=== PATIENT | male | born 1990 | race Caucasian/White ===

== ENCOUNTER 2017-04-20 18:25 | Inpatient (IN) | payer BC, OTHER ==
[~2017-04-20] VITALS: Ht 167.6 cm; Wt 99.8 kg
--- NOTE | 2017-04-20 19:30 | NUR ---
PRE ADMISSION NOTE Pt is a 26 y/o male, seen at intake, AAOx4, no SOB with mild anxiety and flushed skin noted at this time. Pt is currently intoxicated. Discussed with patient the admission policies of the unit. Patient is coherent and able to respond to questions appropriately. No known allergies, denies history of seizures. Reports PMH of anxiety, depression, insomnia, and left ventricular hypertrophy (LVH). Pt is ambulatory with steady gait. Vital signs taken and as follows: BP: 144/85, P: 116, R: 18, O2: 99%, T: 98.6, PA: 0/10. Pt brought home medications. Pt verbalized understanding of instructions and teachings regarding disposal of narcotic and other controlled home medications, unit protocols such as taking of vital signs Q4H and handling and disposal of contraband. Will continue with admission upon pts arrival on the unit.
--- NOTE | 2017-04-20 19:43 | NUR ---
ADMISSION NOTE Pt is a 26 y/o male admitted on 04/14/17 for ETOH dependence, arrived on the unit at 1943. Pt able to provide UDS during intake. Skin and body check completed. Pt is full code, NKA, regular diet and on fall/seizure precautions. No reported seizure history. Reports PMH of anxiety, depression, insomnia and left ventricular hypertrophy (LVH). Pt refuses flu/pneumonia vaccine. Vitals upon assessment are BP: 144/85, P: 116, R: 18, O2: 99%, T: 98.6, PA: 0/10. Weight 220, height 56. Pt is currently intoxicated and reports his last intake was beer just prior to arrival. Pt reports he does not have a PCP, smokes approximately pack cigarettes daily, denies being hospitalized or in [facility] within past 30 days. Pt brought home medication Risperidone 1 mg taken once daily. Pt also verbalizes taking Zoloft and unknown sleep medication regularly. Pt is able to understand and respond to all questions pertaining to his hospitalization. Substance Abuse History is as follows: 1. Beer 6-15 cans daily, last intake of 12-15 cans total on day of admission (last intake just prior to arrival), at this rate for 1 year. 2. Whiskey 500-750 ml daily, last intake of 500 ml on day of admission, at this rate for 3 months. Pts longest sober period for 28 days in April 2016. Pt reports this is his first time in treatment/detox. Reports substance use history with his mother, father and brother. Father has PMH of heart disease and RI. Upon assessment, pt is AAOx4 and presents with anxiety, agitation, sweats, gross tremors and flushed skin. Pt reports it is typical for him to have tremors when intoxicated. Respirations even and unlabored. Denies SOB or chest pain. Bowel sounds active x 4, abdomen soft. PERRLA. Skin intact, no open wounds noted. Pt denies SI/HI at this time. Reports having history of suicidal thoughts with no plan. Educational information provided and left at bedside. Pt oriented to room and encouraged to notify staff with any concerns. Safety measures in place. Call light within reach, side rails up x 2, bed locked and in low position. Will continue to monitor. Addendum: 04/21/17 at 0538 by CHANDANA DIETZ RN PT ADMITTED ON 04/20/17
[2017-04-20] MEDS ORDERED: MAGNESIUM HYDROXIDE 30 ML LIQUID UDC PO PRN (19:45)
[2017-04-20] MEDS ORDERED: LORAZEPAM 1 MG TABLET PO PRN ×2 (19:45)
[2017-04-20] MEDS ORDERED: ONDANSETRON 4 MG/2 ML VIAL IM PRN (19:45)
[2017-04-20] MEDS ORDERED: diphenhydrAMINE 50 MG CAPSULE PO PRN (19:45)
[2017-04-20] MEDS ORDERED: DICYCLOMINE HCL 20 MG TABLET PO PRN (19:45)
[2017-04-20] MEDS ORDERED: NICOTINE POLACRILEX 4 MG GUM-PK OF TEN BC PRN (19:45)
[2017-04-20] MEDS ORDERED: MIRALAX 17 GM POWD.PACK PO PRN (19:45)
[2017-04-20] MEDS ORDERED: ONDANSETRON ODT 4 MG TAB.RAPDIS SL PRN (19:45)
[2017-04-20] MEDS ORDERED: IBUPROFEN 400 MG TABLET PO PRN (19:45)
[2017-04-20] MEDS ORDERED: NICOTINE 14 MG/24HR PATCH TD PRN (19:45)
[2017-04-20] MEDS ORDERED: MAG HYDROX/AL HYDROX/SIMETH 30 ML LIQUID UDC PO PRN (19:45)
[2017-04-20] MEDS ORDERED: ACETAMINOPHEN 325 MG TABLET PO PRN (19:45)
[2017-04-20] MEDS ORDERED: LOPERAMIDE HCL 2 MG CAPSULE PO PRN ×2 (19:45)
[2017-04-20] MEDS ORDERED: LORAZEPAM 2 MG/1 ML VIAL IM PRN (19:45)
[2017-04-20 20:00] VITALS: BP 144/85
[2017-04-20 20:13] LABS: *AMPHETAMINE, URINE NEGATIVE (NEGATIVE); *BARBITURATE, URINE NEGATIVE (NEGATIVE); *CANNABINOID, URINE NEGATIVE (NEGATIVE); *COCCAINE, URINE NEGATIVE (NEGATIVE); *OPIATE, URINE NEGATIVE (NEGATIVE); *PHENCYCLIDINE SCREEN,URINE NEGATIVE (NEGATIVE)
[2017-04-20] MEDS ORDERED: THIAMINE HCL 200 MG/2 ML VIAL IM ONE (21:00)
--- NOTE | 2017-04-20 21:56 | NUR ---
PRN CLONIDINE ADMINISTRATION Pt BP 144/85 and HR 116, orders to give Clonidine 0.1 mg PO. Safety measures in place. Call light within reach. Will continue to monitor.
[2017-04-20] MEDS: CLONIDINE HCL 0.1 MG TABLET PO PRN (21:58)
[2017-04-20 22:33] LABS: BASOPHILS # (AUTO) 0.1 K/uL (0.0-8.0); BASOPHILS % (AUTO) 0.7 % (0.0-2.0); EOSINOPHILS % (AUTO) 0.3 % (0.0-7.0); HEMATOCRIT 43.8 % (36.7-47.1); HEMOGLOBIN 15.1 g/dL (12.5-16.3); LYMPHOCYTES # (AUTO) 1.4 K/uL (20.0-40.0); LYMPHOCYTES % (AUTO) 17.9 % (20.5-51.5); MEAN CORPUSCULAR HEMOGLOBIN 31.1 uug (23.8-33.4); MEAN CORPUSCULAR HGB CONC 34 g/dL (32.5-36.3); MEAN CORPUSCULAR VOLUME 90.4 fL (73.0-96.2); MONOCYTES # (AUTO) 1.1 K/uL (2.0-10.0); MONOCYTES % (AUTO) 14.1 % (0.0-11.0); NEUTROPHILS # (AUTO) 5.2 K/uL (1.8-8.9); PLATELET COUNT (AUTO) 168 K/uL (152-348); RED BLOOD CELL COUNT(AUTO) 4.84 MIL/uL (4.06-5.63); WHITE BLOOD COUNT (AUTO) 7.8 K/uL (3.6-10.2)
[2017-04-20 22:49] LABS: ETHANOL < 3 MG/DL (0-0)
[2017-04-20 22:50] LABS: ALANINE AMINOTRANSFERASE 52 U/L (16-63); ALKALINE PHOSPHATASE 71 U/L (50-136); ASPARTATE AMINOTRANSFERASE 60 U/L (15-37); BILIRUBIN,TOTAL 0.5 mg/dL (0.2-1.0); CARBON DIOXIDE 22 mmol/L (21-32); CHLORIDE 99 mmol/L (98-107); CREATININE 0.9 mg/dL (0.6-1.3); GLUCOSE 104 mg/dL (74-106); LIPASE 284 U/L (73-393); MAGNESIUM 1.7 mg/dL (1.8-2.4); POTASSIUM 3.2 mmol/L (3.5-5.1); UREA NITROGEN, BLOOD 11 mg/dL (7-18)
--- NOTE | 2017-04-20 22:56 | NUR ---
PRN CLONIDINE REASSESSMENT BP 138/82 HR 108, Clonidine effective in reducing BP. Safety measures in place. Call light within reach. Will continue to monitor.
[2017-04-20 22:58] VITALS: BP 138/82
--- NOTE | 2017-04-20 23:26 | NUR ---
PRN VISTARIL AND BENADRYL ADMINISTRATION Pt presents with anxiety and restlessness, requests sleep aid. Safety measures in place. Call light within reach. Will continue to monitor.
[2017-04-20] MEDS ORDERED: HYDROXYZINE PAMOATE 25 MG CAPSULE PO PRN (23:30)
[2017-04-20] MEDS ORDERED: HYDROXYZINE PAMOATE 25 MG CAPSULE ONE (23:41)
[2017-04-21] VITALS (7 sets, daily range): BP systolic 125–152; BP diastolic 79–98
--- NOTE | 2017-04-21 | NUR ---
CIWA DEFERRED Pt is laying in bed with eyes closed, CIWA deferred, to be assessed when pt is awake per orders. Respirations 18, even and unlabored. Safety measures in place. Call light within reach. Will continue to monitor.
--- NOTE | 2017-04-21 00:26 | NUR ---
PRN VISTARIL AND BENADRYL REASSESSMENT Pt is laying in bed with eyes closed, respirations 18, even and unlabored. Safety measures in place. Call light within reach. Will continue to monitor.
[2017-04-21] MEDS ORDERED: RISP1TAB27 PO (00:32)
--- NOTE | 2017-04-21 04:00 | NUR ---
CIWA DEFERRED Pt is laying in bed with eyes closed, CIWA deferred, to be assessed when pt is awake per orders. Respirations 14, even and unlabored. Safety measures in place. Call light within reach. Will continue to monitor.
--- NOTE | 2017-04-21 07:14 | NUR ---
END OF SHIFT Pt is a 26 y/o male admitted on 04/14/17 for ETOH dependence. Pt was dependent on 6-15 cans of beer and 500-750 ml of whiskey daily. Pt is full code, NKA, regular diet and on fall/seizure precautions. No reported seizure history. Reports PMH of anxiety, depression, insomnia and left ventricular hypertrophy (LVH). Pt is going to start a 5 day Ativan taper today. Upon admission, pt was intoxicated and presented with flushed skin, gross tremors, sweats, diarrhea, anxiety and agitation. Pt reports his tremors are a typical symptom when he is intoxicated. Scheduled vitamin B1 injection and PRN Vistaril, Clonidine and Benadryl administered, effective in meeting pts needs. Last CIWA 6. Pt slept 6 hours. Intake 1096 ml, void x 2, stool x 2. Safety measures in place. Call l ight within reach. Endorsed to day shift nurse.
--- NOTE | 2017-04-21 08:13 | NUR ---
Nursing notes: received pt in room sitting on bed, awake, alert, oriented x4, verbally responsive, slightly anxious, denies any discomfort at this time, pt is ambulatory and gave him a orientation of the unit since he just arrived last night.
[2017-04-21] MEDS: THIAMINE HCL 100 MG TABLET PO SCH (08:55)
[2017-04-21] MEDS: LORAZEPAM 1 MG TABLET PO SCH ×4 (08:55→20:48)
[2017-04-21] MEDS: MULTIVITAMINS,THERAPEUTIC TABLET PO SCH (08:55)
[2017-04-21] MEDS: FOLIC ACID 1 MG TABLET PO SCH (08:55)
[2017-04-21] MEDS ORDERED: TUBERCULIN,PURIF.PROT.DERIV. 5 TU/0.1 ML TEST ID ONE (09:00)
[2017-04-21] MEDS ORDERED: POTASSIUM CHLORIDE 10 MEQ CAPSULE.SA PO ONE (10:30)
[2017-04-21] MEDS ORDERED: MAGNESIUM OXIDE 400 MG TABLET PO ONE (10:30)
--- NOTE | 2017-04-21 11:53 | NUR ---
Pt's labs shows K+3.2 and MG 1.7 md ordered to replaced and orders were carried out, pt took his meds, pt at this time in room in bed , complient with meds, no c/o N/V or any discomfort, remains isolative in room, no s/s of distress at this time will continue monitoring s/s.
--- NOTE | 2017-04-21 18:00 | NUR ---
pt out the room, continue with 5 days of ativan taper, flat affect, alert, oriented x4 ambulatory, cows 4 and ciwa 6, no distress at this time. Addendum: 04/21/17 at 1846 by VAUGHN WALTON RN cows 0 and ciwa 7
--- NOTE | 2017-04-21 19:30 | NUR ---
START OF SHIFT Pt is a 26 y/o male admitted on 04/14/17 for ETOH dependence. Pt was dependent on 6-15 cans of beer and 500-750 ml of whiskey daily. Pt is full code, NKA, regular diet and on fall/seizure precautions. No reported seizure history. Reports PMH of anxiety, depression, insomnia and left ventricular hypertrophy (LVH). Pt started a 5 day Ativan taper this morning, tolerating well. Last CIWA 7 and no PRNs administered during day shift. Upon assessment, pt A&Ox4 and presents with flushed skin, tremors, mild sweats, agitation, anxiety, diarrhea and dysphoria. Medications due. Respirations even and unlabored. Denies chest pain or SOB. Denies N/V. Denies SI/HI. Safety measures in place. Call light within reach. Will continue to monitor.
[2017-04-21] MEDS: CLONIDINE HCL 0.1 MG TABLET PO PRN (20:48)
--- NOTE | 2017-04-21 20:48 | NUR ---
PRN CLONIDINE AND IMODIUM ADMINISTRATION BP 150/87 HR 116, orders to give Clonidine 0.1 mg for BP > 140/90. Pt reports having frequent watery stools. Encouraged increased fluid intake. Safety measures in [facility]. Call light within reach. Will continue to monitor.
--- NOTE | 2017-04-21 21:48 | NUR ---
PRN CLONIDINE AND IMODIUM REASSESSMENT BP 138/88 HR 118, Clonidine 0.1 mg effective in reducing BP from 150/87. Pt reports he has not had another BM yet, will continue to monitor for effectiveness of Imodium. Safety measures in place. Call light within reach.
[2017-04-21] MEDS: TRAZODONE 50 MG TABLET PO PRN (22:21)
--- NOTE | 2017-04-21 22:28 | NUR ---
PRN TRAZODONE AND NICOTINE PATCH ADMINISTRATION Pt requests sleep aid and smoking cessation aid. Safety measures in place. Call light within reach. Will continue to monitor.
--- NOTE | 2017-04-21 23:28 | NUR ---
PRN TRAZODONE REASSESSMENT Pt laying in bed with eyes closed, respirations 16 even and unlabored. Safety measures in place. Call light within reach.
[2017-04-22] VITALS: BP 134/84
--- NOTE | 2017-04-22 | NUR ---
CIWA DEFERRED Pt is laying in bed with eyes closed snoring, CIWA deferred, to be assessed when pt is awake per orders. Respirations 16, even and unlabored. Safety measures in place. Call light within reach. Will continue to monitor.
--- NOTE | 2017-04-22 04:00 | NUR ---
CIWA DEFERRED AND VITALS REFUSED Pt laying in bed with eyes closed, CIWA deferred, to be assessed when pt is awake per orders. Vitals refused. Respirations 18, even and unlabored. Safety measures in place. Call light within reach. Will continue to monitor.
[2017-04-22 07:08] LABS: HEPATITIS B SURFACE AG Negative (Negative)
--- NOTE | 2017-04-22 07:27 | NUR ---
END OF SHIFT Pt is a 26 y/o male admitted on 04/14/17 for ETOH dependence. Pt was dependent on 6-15 cans of beer and 500-750 ml of whiskey daily. Pt is full code, NKA, regular diet and on fall/seizure precautions. No reported seizure history. Reports PMH of anxiety, depression, insomnia and left ventricular hypertrophy (LVH). Pt started a 5 day Ativan taper on 04/21/17, tolerating well. Pt presented with flushed skin, tremors, mild sweats, agitation, anxiety, increased HR and BP, diarrhea and dysphoria. Scheduled medications and PRN Trazodone, Imodium, Clonidine and Nicotine patch administered, effective in managing S/S of withdrawal as verbalized by pt. Last CIWA 8 at 1999. Pt slept 6 hours. Intake 1090 ml, void x 4, stool x 1. Safety measures in place. Call light within reach. Pts needs have been met. Endorsed to day shift nurse.
--- NOTE | 2017-04-22 07:58 | NUR ---
START OF SHIFT RECEIVED PT A/O X4, RESPIRATIONS EVEN AND UNLABORED. PT REPORTS HAVING ANXIETY, MILD BODY DISCOMFORT, AND SLIGHT TREMORS WERE FELT THIS MORNING. PT DENIES NAUSEA, SOB, AND CHEST PAIN. ENCOURAGED PT TO CONSUME MORE FLUIDS TO FACILITATE IN THE DETOX PROCESS. SIDE RAILS UP X2 AND PADDED, BED IS IN LOWEST POSITION. CALL LIGHT WITHIN REACH. SZ AND FALL PRECAUTIONS TAKEN. WILL CONTINUE TO MONITOR AND PROVIDE SUPPORT.
[2017-04-22 08:00] VITALS: BP 134/63
[2017-04-22] MEDS: MULTIVITAMINS,THERAPEUTIC TABLET PO SCH (08:57)
[2017-04-22] MEDS: LORAZEPAM 1 MG TABLET PO SCH ×3 (08:57→20:45)
[2017-04-22] MEDS: FOLIC ACID 1 MG TABLET PO SCH (08:57)
[2017-04-22] MEDS: THIAMINE HCL 100 MG TABLET PO SCH (08:57)
[2017-04-22 12:00] VITALS: BP 158/95
--- NOTE | 2017-04-22 15:13 | NUR ---
Therapist prompted client to group today. CLient attended group.
[2017-04-22 16:00] VITALS: BP 165/88
[2017-04-22] MEDS: CLONIDINE HCL 0.1 MG TABLET PO PRN (17:32)
--- NOTE | 2017-04-22 17:32 | NUR ---
PRN PT BP 165/88, HR 113. CLONIDINE 0.1 MG PO PRN GIVEN AT 1732. ALL SAFETY PRECAUTIONS TAKEN. WILL CONTINUE TO MONITOR AND PROVIDE SUPPORT.
--- NOTE | 2017-04-22 18:35 | NUR ---
REASSESSMENT PT BP: 142/74, HR: 88 UPON REASSESSMENT. WILL CONTINUE TO MONITOR AND PROVIDE SUPPORT.
--- NOTE | 2017-04-22 19:16 | NUR ---
END OF SHIFT PT HAS A FLAT AFFECT AND IS A/O X4, RESPIRATIONS EVEN AND UNLABORED. PT REPORTS HAVING MILD ANXIETY AND SLIGHT TREMORS ARE FELT. PT DENIES NAUSEA, SOB, AND CHEST PAIN. LAST CIWA 6. ENCOURAGED PT TO CONSUME MORE FLUIDS TO FACILITATE IN THE DETOX PROCESS. PT VERBALIZED HE IS READY TO LEAVE DETOX AND GET BACK TO HIS NORMAL LIFE WITHOUT FURTHER TREATMENT. ENCOURAGED PT TO STAY AND COMPLETE TREATMENT. PT VERBALIZED UNDERSTANDING. SIDE RAILS UP X2 AND PADDED, BED IS IN LOWEST POSITION. CALL LIGHT WITHIN REACH. SZ AND FALL PRECAUTIONS TAKEN. WILL GIVE ALL ENDORSEMENT AND PERTINENT DATA TO [employer] NURSE.
[2017-04-22 20:00] VITALS: BP 160/90
--- NOTE | 2017-04-22 20:00 | NUR ---
Start of Shift Pt is a 26 year old male admitted for ETOH dependence, placed on 5 day Ativan taper. Pt reported on consuming beer 6-15 cans/daily and whiskey 500-750ml/daily. PMH: anxiety, depression and insomnia. NKA, regular diet, fall/seizure precautions and full code. Upon assessment, pt presents with anxiety, chills, skin clammy/flushed with feeling of hot/cold, tremors are visible, pins/needles sensations, respirations unlabored, denies SOB/chest pain, medications due. Safety measures in place, call light within reach, side rails up x2, bed locked and in low position. Will continue to monitor.
[2017-04-22] MEDS: GABAPENTIN 300 MG CAPSULE PO SCH (20:44)
[2017-04-22] MEDS: hydrALAZINE HCL 50 MG TABLET PO PRN (20:45)
--- NOTE | 2017-04-22 20:45 | NUR ---
PRN Administration BP 160/90, pulse 118. Hydralazine 50mg PRN administered. Safety measures in place, will continue to monitor.
[2017-04-22 21:45] VITALS: BP 146/89
--- NOTE | 2017-04-22 21:55 | NUR ---
PRN Reassessment BP 146/89, pulse 115. Pt is resting in room, watching TV. Needs met, safety measures in place, will continue to monitor.
[2017-04-22] MEDS: TRAZODONE 50 MG TABLET PO PRN (23:42)
[2017-04-23] VITALS: BP 144/87
--- NOTE | 2017-04-23 | NUR ---
PRN Administration/Reassessment of BP BP 144/87, pulse 108, resp 17, SpO2 98% room air, temp 98.2 Pt requests sleep aid. Trazodone 50mg PRN administered. Safety measures in place, will continue to monitor.
--- NOTE | 2017-04-23 01:00 | NUR ---
PRN Reassessment Upon reassessment, pt is sleeping, respirations even/unlabored. Safety measures in place, will continue to monitor.
--- NOTE | 2017-04-23 04:00 | NUR ---
SULMAWA deferred d/t pt sleeping, to assess while pt is awake as ordered. Pt refused to be woken up for 0400 [address] measures [address], will continue to monitor.
--- NOTE | 2017-04-23 07:00 | NUR ---
End of Shift Pt is a 26 year old male admitted for ETOH dependence, placed on 5 day Ativan taper. Pt reported on consuming beer 6-15 cans/daily and whiskey 500-750ml/daily. PMH: anxiety, depression and insomnia. NKA, regular diet, fall/seizure precautions and full code. During shift, pt presented with anxiety, chills, skin clammy/flushed with feeling of hot/cold, tremors are visible, pins/needles sensations scheduled taper medications administered, CIWA 6. Hydralazine 50mg PRN administered for elevated VS. Latest VS are BP 144/87, pulse 108, resp 17, SpO2 98, temp 98.1. Pt slept for 5 hours, intake [id number] ml PO, voids x2 and stool x1. Safety measures in place, call light within reach, side rails up x2, bed locked and in low position. Endorsed to day shift nurse.
--- NOTE | 2017-04-23 07:36 | NUR ---
START OF SHIFT RECEIVED PT A/O X4, LAYING IN BED, RESPIRATIONS EVEN AND UNLABORED. PT REPORTS ANXIETY, INTERMITTENT CHILLS. DENIES SOB, CHEST PAIN OR NAUSEA. PT LOOKS FLUSHED AND TREMORS ARE SEEN. ENCOURAGED PT TO CONSUME MORE FLUIDS TO FACILITATE IN DETOX PROCESS. SIDE RAILS UP X2, BED IS LOCKED IN LOWEST POSITION. CALL LIGHT WITHIN REACH. SZ AND FALL PRECAUTIONS TAKEN. WILL CONTINUE TO MONITOR AND PROVIDE SUPPORT.
[2017-04-23 08:00] VITALS: BP 114/68
[2017-04-23] MEDS: THIAMINE HCL 100 MG TABLET PO SCH (08:57)
[2017-04-23] MEDS: GABAPENTIN 300 MG CAPSULE PO SCH ×2 (08:57→20:21)
[2017-04-23] MEDS: MULTIVITAMINS,THERAPEUTIC TABLET PO SCH (08:57)
[2017-04-23] MEDS: LORAZEPAM 1 MG TABLET PO SCH ×3 (08:57→16:46)
[2017-04-23] MEDS: FOLIC ACID 1 MG TABLET PO SCH (08:57)
--- NOTE | 2017-04-23 11:25 | NUR ---
PRN PT C/O HAVING NICOTINE CRAVINGS. NICORETTE GUM WAS GIVEN AT 1125. WILL CONTINUE TO MONITOR.
--- NOTE | 2017-04-23 11:25 | NUR ---
PRN PT C/O OF HAVING NICOTINE CRAVINGS AND REQUESTED A NICORETTE GUM. ADMINISTERED AT 1125. WILL CONTINUE TO MONITOR.
[2017-04-23 12:00] VITALS: BP 169/93
--- NOTE | 2017-04-23 12:25 | NUR ---
REASSESSMENT PT STATED THAT THE NICORETTE GUM WAS EFFECTIVE FOR HIS NICOTINE CRAVINGS. WILL CONTINUE TO MONITOR.
[2017-04-23] MEDS: hydrALAZINE HCL 50 MG TABLET PO PRN (13:23)
--- NOTE | 2017-04-23 13:25 | NUR ---
PRN PT BP WAS 169/ 93, HR 119. HYDRALAZINE 50 MG PO PRN WAS GIVEN. WILL CONTINUE TO MONITOR.
[2017-04-23] MEDS: CLONIDINE HCL 0.1 MG TABLET PO PRN (15:24)
--- NOTE | 2017-04-23 15:25 | NUR ---
PRN PT C/O HE WAS HAVING HIGH ANXIETY AND STATED, "I AM HAVING REALLY HIGH ANXIETY RIGHT NOW, I AM FREAKING OUT." BP WAS 165/103, HR WAS 123. SWEATING WAS VISIBLE, HAD FACIAL FLUSHING, AND HAD LABORED BREATHING. CLONIDINE 0.1 MG PO PRN GIVEN FOR BP 165/103, HR 123. DR. BONNER NOTIFIED.
[2017-04-23 16:00] VITALS: BP 179/92
[2017-04-23] MEDS ORDERED: OLANZAPINE 10 MG VIAL IM ONE (16:00)
--- NOTE | 2017-04-23 16:40 | NUR ---
DR. BONNER ORDERED ZYPREXA 5 MG IM X1 DOSE FOR PANIC-LIKE SYMPTOMS. PT VERBALIZED HE WAS HAVING A PANIC ATTACK AND STATED, "I AM HAVING HIGH ANXIETY RIGHT NOW. I FEEL LIKE I AM FREAKING OUT." PT APPEARS TO BE HIGHLY ANXIOUS, WITH FACIAL FLUSHING, BEADS OF SWEAT ON HIS FACE, AND BREATHING ACCELERATED. CIWA 18. ZYPREXA 5 MG IM GIVEN. WILL CONTINUE TO MONITOR.
--- NOTE | 2017-04-23 17:40 | NUR ---
REASSESSMENT PT STATES HE IS FEELING BETTER AND MEDICATION WAS EFFECTIVE. WILL CONTINUE TO MONITOR.
--- NOTE | 2017-04-23 19:11 | NUR ---
END OF SHIFT PT IS A/O X4, LAYING IN BED, RESPIRATIONS EVEN AND UNLABORED. PT REPORTS ANXIETY, INTERMITTENT CHILLS. DENIES SOB, CHEST PAIN OR NAUSEA. PT LOOKS FLUSHED AND TREMORS ARE SEEN. PT HAD INCREASED ANXIETY AND STATE OF PANIC AROUND 1530; PT STATED, I AM HAVING HIGH ANXIETY RIGHT NOW. I FEEL LIKE I AM FREAKING OUT." DR BONNER WAS NOTIFIED AND ZYPREXA 5 MG IM X1 WAS ORDERD AND GIVEN. PT STATED IT WAS EFFECTIVE. ENCOURAGED PT TO CONSUME MORE FLUIDS TO FACILITATE IN DETOX PROCESS. SIDE RAILS UP X2, BED IS LOCKED IN LOWEST POSITION. CALL LIGHT WITHIN REACH. SZ AND FALL PRECAUTIONS TAKEN. WILL GIVE ALL ENDORSEMENT AND PERTINENT INFORMATION TO [employer] NURSE.
[2017-04-23 20:00] VITALS: BP 120/65
--- NOTE | 2017-04-23 20:00 | NUR ---
Start of Shift Pt is a 26 year old male admitted for ETOH dependence, placed on 5 day Ativan taper. Pt reported on consuming beer 6-15 cans/daily and whiskey 500-750ml/daily. PMH: anxiety, depression and insomnia. NKA, regular diet, fall/seizure precautions and full code. Upon assessment, pt presents with anxiety, reports feeling fatigue, skin clammy/flushed, tremors are visible, pins/needles sensations, respirations unlabored, denies SOB/chest pain, medications due. Safety measures in place, call light within reach, side rails up x2, bed locked and in low position. Will continue to monitor.
[2017-04-23] MEDS ORDERED: LORAZEPAM 1 MG TABLET PO SCH (21:00)
[2017-04-24] VITALS: BP 145/79
[2017-04-24] MEDS: TRAZODONE 50 MG TABLET PO PRN ×2 (00:10→22:40)
--- NOTE | 2017-04-24 00:10 | NUR ---
PRN Reassessment Pt reports difficulty falling asleep. Trazodone 50mg PRN administered. Safety measures in place, will continue to monitor. Addendum: 04/24/17 at 0209 by CAMILO CURTIS RN CORRECTION: PRN ADMINISTRATION
--- NOTE | 2017-04-24 00:11 | NUR ---
PRN Administration Pt reports difficulty falling asleep. Trazodone 50mg PRN administered. Safety measures in place, will continue to monito
--- NOTE | 2017-04-24 01:12 | NUR ---
Upon reassessment, pt is sleeping, respirations even/unlabored. Safety measures in place, will continue to monitor.
--- NOTE | 2017-04-24 07:00 | NUR ---
End of Shift Pt is a 26 year old male admitted for ETOH dependence, placed on 5 day Ativan taper. Pt reported on consuming beer 6-15 cans/daily and whiskey 500-750ml/daily. PMH: anxiety, depression and insomnia. NKA, regular diet, fall/seizure precautions and full code. During shift, pt presented with anxiety, reported feeling fatigue, skin clammy/flushed, tremors visible, pins/needles sensations scheduled taper medications administered, effective in management of s/s of withdrawal, CIWA 6. No PRN medications administered during shift. Pt slept for 6 hours, intake of 1328 ml PO, voids x2 and stool x0. Safety measures in place, call light within reach, side rails up x2, bed locked and in low position. Endorsed to day shift nurse.
--- NOTE | 2017-04-24 07:30 | NUR ---
START OF SHIFT Pt 26 y/o male admitted for eoth dependence. Pt received in room on bed with eyes closed resting, but easily arousable to name. Pt alert and oriented to name, place, and time. Perrla. Skin warm and slightly moist to touch. Respirations even and unlabored. Bilateral hand tremors noted. It was reported that pt slept for 6 hours last night. Bed on lowest position with side rails x2 up for safety. Call light within reach. No distress noted at this time.
[2017-04-24 08:00] VITALS: BP 96/53
[2017-04-24] MEDS: GABAPENTIN 300 MG CAPSULE PO SCH ×3 (08:53→20:07)
[2017-04-24] MEDS: THIAMINE HCL 100 MG TABLET PO SCH (08:53)
[2017-04-24] MEDS: FOLIC ACID 1 MG TABLET PO SCH (08:53)
[2017-04-24] MEDS: MULTIVITAMINS,THERAPEUTIC TABLET PO SCH (08:53)
[2017-04-24] MEDS: LORAZEPAM 1 MG TABLET PO SCH ×3 (08:53→20:08)
[2017-04-24] MEDS: VENLAFAXINE XR 75 MG CAP.SR.24H PO SCH (10:47)
[2017-04-24 12:35] VITALS: BP 156/81
[2017-04-24] MEDS: CLONIDINE HCL 0.1 MG TABLET PO PRN (12:41)
--- NOTE | 2017-04-24 12:41 | NUR ---
PRN pt with xz=377/88. Catapres po prn per MD order given and tolerated well.
--- NOTE | 2017-04-24 13:41 | NUR ---
PRN EVAL Pt with ea=052/88
[2017-04-24 16:00] VITALS: BP 133/98
--- NOTE | 2017-04-24 18:45 | NUR ---
END OF SHIFT Pt 26 y/o male admitted for ETOH dependence. Pt alert and oriented to name, place, and time. Perrla. Respirations even and unlabored. Skin warm and slightly moist to touch. Bilateral hand tremors noted. Pt states had periods of some anxiety this morning. Pt observed mostly in room this morning. Pt attended group activity. Pt was seen by MD today. Pt medication compliant and tolerated well. No ASE noted. Bed on lowest position with side rails x2 up for safety. Call light within reach. No distress noted at this time.
[2017-04-24 20:00] VITALS: BP 152/85
--- NOTE | 2017-04-24 20:00 | NUR ---
Start of Shift Pt is a 26 year old male admitted for ETOH dependence, placed on 5 day Ativan taper. Pt reported on consuming beer 6-15 cans/daily and whiskey 500-750ml/daily. PMH: anxiety, depression and insomnia. NKA, regular diet, fall/seizure precautions and full code. Upon assessment, pt presents with anxiety, reports feeling fatigue, skin clammy/flushed, tremors felt upon touch, respirations unlabored, denies SOB/chest pain, medications due. Safety measures in place, call light within reach, side rails up x2, bed locked and in low position. Will continue to monitor.
[2017-04-24] MEDS: CLONIDINE HCL 0.1 MG TABLET PO SCH (20:08)
[2017-04-24 21:10] VITALS: BP 142/86
--- NOTE | 2017-04-24 22:40 | NUR ---
PRN Administration Pt requests sleeping aid. Trazodone 50mg PRN administered. Safety measures in place, will continue to monitor.
--- NOTE | 2017-04-24 23:40 | NUR ---
PRN Reassessment Upon reassessment, pt is sleeping, respirations even/unlabored. Safety measures in place, will continue to monitor.
[2017-04-25] VITALS: BP 144/84
--- NOTE | 2017-04-25 | NUR ---
SULMAWA deferred d/t pt sleeping, to assess while pt is awake as ordered. BP 144/84, pulse 86, resp 16, SpO2 99% room air, temp 98.[address], Will continue to monitor.
--- NOTE | 2017-04-25 07:00 | NUR ---
End of Shift Pt is a 26 year old male admitted for ETOH dependence, placed on 5 day Ativan taper. Pt reported on consuming beer 6-15 cans/daily and whiskey 500-750ml/daily. PMH: anxiety, depression and insomnia. NKA, regular diet, fall/seizure precautions and full code. During shift, pt presented with anxiety, reported feeling fatigue, skin clammy/flushed, tremors felt upon touch scheduled taper medications administered, effective in management of s/s of withdrawal, CIWA 5. Trazodone 50mg PRN administered during shift. Pt slept for 6 hours, intake of 1341 ml PO, voids x4 and stool x0. Safety measures in place, call light within reach, side rails up x2, bed locked and in low position. Endorsed to day shift nurse.
--- NOTE | 2017-04-25 07:21 | NUR ---
START OF SHIFT Pt 26 y/o male admitted for eoth dependence. Pt received in room on bed with eyes closed resting, but easily arousable to name. Pt alert and oriented to name, place, and time. Perrla. Skin warm and slightly moist to touch. Respirations even and unlabored. Bilateral hand tremors noted slightly. It was reported that pt slept for 6 hours last night. Bed on lowest position with side rails x2 up for safety. Call light within reach. No distress noted at this time.
[2017-04-25] MEDS: FOLIC ACID 1 MG TABLET PO SCH (08:16)
[2017-04-25] MEDS: THIAMINE HCL 100 MG TABLET PO SCH (08:16)
[2017-04-25] MEDS: GABAPENTIN 300 MG CAPSULE PO SCH ×3 (08:16→21:51)
[2017-04-25] MEDS: CLONIDINE HCL 0.1 MG TABLET PO SCH ×2 (08:17→21:52)
[2017-04-25] MEDS: MULTIVITAMINS,THERAPEUTIC TABLET PO SCH (08:17)
[2017-04-25] MEDS: VENLAFAXINE XR 75 MG CAP.SR.24H PO SCH (08:17)
[2017-04-25 08:19] VITALS: BP 114/62
[2017-04-25] MEDS ORDERED: LORAZEPAM 1 MG TABLET PO SCH (09:00)
[2017-04-25 12:17] VITALS: BP 127/72
[2017-04-25] MEDS ORDERED: TRAZ-144 PO (15:06)
[2017-04-25] MEDS ORDERED: CLON0.1T14 PO (15:06)
[2017-04-25] MEDS ORDERED: HYDR25CA PO (15:06)
[2017-04-25] MEDS ORDERED: GABA-534 PO (15:06)
[2017-04-25] MEDS ORDERED: VENL75CA56 PO (15:06)
--- NOTE | 2017-04-25 16:59 | NUR ---
ENDORSEMENT Endorsed pt to nurse. All information given. No distress noted at this time.
[2017-04-25] MEDS: CLONIDINE HCL 0.1 MG TABLET PO PRN (17:04)
--- NOTE | 2017-04-25 17:04 | NUR ---
PRN Pt with cb=725/88. catapres po prn per MD order given and tolerated well.
[2017-04-25 17:05] VITALS: BP 143/88
--- NOTE | 2017-04-25 17:05 | NUR ---
RECEIVED CARE All pertinent information discussed, received care from primary nurse.
--- NOTE | 2017-04-25 18:03 | NUR ---
CLONIDINE REASSESSMENT Blood pressure noted 132/69, PRN Clonidine was effective.
--- NOTE | 2017-04-25 19:02 | NUR ---
END OF SHIFT Pt 26 year old male admitted for ETOH dependence. Pt alert and oriented to name, place, and time. Perrla. Respirations even and unlabored. Skin warm and slightly moist to touch. Bilateral hand tremors noted slightly. Pt observed mostly in room this morning. Pt attended group activity. Pt was seen by MD today. Pt medication compliant and tolerated well. Last CIWA score was 3, patient scheduled for discharge in AM. No ASE noted. Bed on lowest position with side rails x2 up for safety. Call light within reach. No distress noted at this time.
--- NOTE | 2017-04-25 19:15 | NUR ---
START OF SHIFT Received 26 year old male admitted on 04/20/17 for ETOH dependency. Pt is full code with NKA. He reports a PMHx of anxiety, depression and insomnia. He reports drinking beer 6-15 cans daily for 1 year. Last dose was 12-15 cans on 04/20/17. And Whiskey 500-750mL daily for 3 months. Last dose was 500 mL on 04/20/17. He denies any seizure history. He completed his 5 day Ativan taper and is scheduled to be DC to [facility]. Per endorsement, he received PRN Clonidine. Pt is alert and oriented x4, breathing is even and unlabored. Safety measures in place. Will monitor.
[2017-04-25 20:00] VITALS: BP 137/99
[2017-04-25] MEDS: TRAZODONE 50 MG TABLET PO PRN (23:16)
--- NOTE | 2017-04-25 23:16 | NUR ---
PRN TRAZODONE Pt complains of inability to sleep. PRN Trazodone administered as ordered. Will continue to monitor effectiveness.
[2017-04-26] VITALS: BP 148/89
--- NOTE | 2017-04-26 00:16 | NUR ---
PRN TRAZODONE REASSESSMENT PRN medication ineffective. Pt still awake but appears drowsy and reports he is ready to sleep. Safety measures in place. Will monitor.
--- NOTE | 2017-04-26 04:00 | NUR ---
CIWA DEFERRED Pt is lying in bed with eyes closed noted to be asleep. Respirations 16, breathing is even and unlabored. Safety measures in place. Will monitor.
--- NOTE | 2017-04-26 07:06 | NUR ---
END OF SHIFT Pt is a 26 year old male admitted on 04/20/17 for ETOH dependency. Pt is full code with NKA. He reports a PMHx of anxiety, depression and insomnia. He is scheduled to be DC today to [facility]. At 2316 he received PRN Trazodone. He slept a total of 5 hrs, Intake: 1182mL, Void: x3, BM:0, CIWA: 2. Pt remains alert and oriented x4, breathing is even and unlabored. Safety measures in place. Endorsed to AM shift.
--- NOTE | 2017-04-26 07:34 | NUR ---
Start of shift note; Received report from night nurse. Patient is a 26 year old male admitted on 04/20/17 for ETOH dependence. Patient was placed on a 5 day Ativan taper, no adverse reactions noted. Patient reported history of anxiety, depression and insomnia. Patient is on full code status, NKA, on a regular diet. Patient is medically cleared for discharge today. Will continue to monitor patient.
[2017-04-26] MEDS: VENLAFAXINE XR 75 MG CAP.SR.24H PO SCH (08:06)
[2017-04-26] MEDS: THIAMINE HCL 100 MG TABLET PO SCH (08:07)
[2017-04-26] MEDS: MULTIVITAMINS,THERAPEUTIC TABLET PO SCH (08:07)
[2017-04-26] MEDS: FOLIC ACID 1 MG TABLET PO SCH (08:07)
[2017-04-26] MEDS: GABAPENTIN 300 MG CAPSULE PO SCH (08:07)
[2017-04-26] MEDS: CLONIDINE HCL 0.1 MG TABLET PO SCH (08:07)
[2017-04-26 09:00] VITALS: BP 138/82
--- NOTE | 2017-04-26 09:48 | NUR ---
Discharge note; Patient is AOX4. Patient completed detox treatment without any adverse reactions. Patient's vital signs are within normal limits. Patient denies any suicidal ideations or tendencies. All valuables, belongings and medications given to patient. Patient is medically cleared for discharge per MD. Patient refused to transfer to treatment Center post detox treatment. recreation activities coordinator was notified by SLITTER AND REWINDER MACHINE OPERATOR workers compensation claims supervisor. Educated patient regarding the risks and consequences of non-compliance to after treatment plan, patient verbalized understanding. Patient continues to refuse to go to treatment. Patient able to make his own decisions, patient decided to go home to [place] instead. Charge nurse and recreation activities coordinator notified. Patient was escorted by SLITTER AND REWINDER MACHINE OPERATOR out of the hospital on 04/26/17 at exactly 0948. Patient left in a stable condition. Met all needs.
== END 2017-04-26 09:48 | disposition other institution (70) | DRG 895 ==
LOC: SRC 18:25
PROVIDERS: ADMIT Internal Medicine; ATTEND Internal Medicine
PROC: HZ2ZZZZ Detoxification Services for Substance Abuse Treatment (ICD-10-PCS; principal; 2017-04-20)
PROC: HZ41ZZZ Group Counseling for Substance Abuse Treatment, Behavioral (ICD-10-PCS; 2017-04-21)
PROC: HZ31ZZZ Individual Counseling for Substance Abuse Treatment, Behavioral (ICD-10-PCS; 2017-04-22)
DX: F10.230 Alcohol dependence with withdrawal, uncomplicated (principal); K70.10 Alcoholic hepatitis without ascites; I15.9 Secondary hypertension, unspecified; E83.42 Hypomagnesemia; E87.6 Hypokalemia; Y90.0 Blood alcohol level of less than 20 mg/100 ml; G47.00 Insomnia, unspecified; F41.9 Anxiety disorder, unspecified; F17.210 Nicotine dependence, cigarettes, uncomplicated; Z81.1 Family history of alcohol abuse and dependence; Z82.49 Family history of ischemic heart disease and other diseases of the circulatory system; Z81.8 Family history of other mental and behavioral disorders
CPT/HCPCS: 36415; 70030-TC; 80307; 83690; 83735; 85025; 86592; 86705; 86803; 87340; 87806; A4663; G0480; J2358; J3411; Q0163

== ENCOUNTER 2017-12-11 14:44 | Inpatient (IN) | payer BC, OTHER ==
[~2017-12-11] VITALS: Ht 167.6 cm; Wt 95.3 kg
[~2017-12-11 14:44] MED LIST: CLON0.1T14 PO; GABA-534 PO; HYDR25CA PO; TRAZ-213 PO; VENL75CA56 PO
[2017-12-11 15:00] VITALS: BP 126/59
--- NOTE | 2017-12-11 15:00 | NUR ---
pt assessed in intake office, pt is moderately intoxicated. pt laughs and makes jokes with questions being asked. pt is compliant and cooperative. pt verbalizes he drinks a lot when asked how much he verbalized too much. explained unit protocols and procedures and pt verbalized understanding .
--- NOTE | 2017-12-11 15:25 | NUR ---
Admission Note: Admitted a 27 year old male under the care of Dr. Hodge for medically supervised withdrawal from ETOH. Patient is alert and oriented x 4. Appears moderately intoxicated and laughs at questions being asked. Speech is pressured with poor eye contact. Ambulatory with steady gait. He appears disheveled, odorous, breath smelled of alcohol, clothes worn are dirty and stained with dirty fingernails and with poor regards to hygiene. He is seen with restless legs, facial flushing, difficulty concentrating and complains of generalized discomfort at this time. He reports adverse reaction to Dimetapp. He states "It just has this bad reaction to me. I just don't feel right when I take it." No contraband was found upon body check. On skin assessment, patient was seen with redness on his nose. He reports that this was due to a fight he had with the police due to intoxication." He reports his usual withdrawal symptoms are "cramping, shakiness, dry heaving, sweating, nausea and vomiting." He is currently complaining of restlessness and generalized discomfort at this time. Substance Use: 1. ETOH - Started using at 20 years old. Patient reports drinking 3 pints of Vodka and/or 5-12 tall cans (12 oz each) beer daily x 3 months. 2. Cocaine - Started using at 22 years old. Patient snorts 3-4 grams daily on a non-daily basis. Last use was a month ago 11/10/2017. 3. Marijuana - Started using at 14 years old. Patient reports smoking "1 joint" on a non-daily basis. Last smoked this AM 12/11/2017. Treatment History: 1. [facility] - 04/20/2017 to 04/26/2017 2. [facility] 04/26/2017 x 24 days 3. Hospital in [place] x < 24 hours due to alcohol intoxication on 12/10/2017 Consequences of Substance Abuse: He reports having withdrawal induced seizure in September or October of this year. He states "I was laying in bed, all of a sudden I couldn't feel or touch anything, I lost consciousness and that's when my roommate helped me out and called 911 then I was sent to the ER." He denies having withdrawal induced delirium or blackouts however states, "One day I was so drunk that I just kept on walking and walking for hours and I don't remember where I was then I ended up at a [employer] but I don't remember that [employer] that I was looking for so I asked someone to drive me to the right one but they didn't drop me off to the right one so I just kept on walking and walking until my family picked me up. I don't remember why I did that." He reports having left ventricular hypertrophy but was not sure if it was due to withdrawal. He denies any overdoses in the past. He reported that he was at a hospital in [place] last night for less than 24 hours due to severe alcohol intoxication but did not get any medications while in the hospital. He currently does not remember the name of the hospital. Past Medical/Psych hx: 1. Anxiety 2. Depression 3. Insomnia 4. Left Ventricular Hypertrophy 5. Withdrawal-induced seizures 6. Hypertension Patient reports that he is prescribed Clonidine 0.1 for his blood pressure but is currently not taking it. He also reports being prescribed Trazodone for sleep but is also not currently taking this medication. He denies having a PCP or a psychiatrist at this time. No psychiatric complications were reported. Denies S/I or S/A nor any involuntary psych hospitalization. Patient did not bring any medications from home. Motivation: Patient recently achieved 60 days of sobriety which ended in September of this year. Patient stated "I relapsed cause I was earning so much money and I did not know what to do with it. I was doing so good for myself and I thought my life was OK because of all the money I have. I am single, I have no kids. Everyone around me are having a family and I just feel so alone. I thought I could handle one drink cause I was bored so I partied, the next thing you know I was drinking too much that it just got out of hand. 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 In this life, you live, but you're not OK, I'm tired. I feel terrible." He reports feeling "sick" upon waking up in the morning after drinking where he gets "shaky and starts throwing up" after drinking the night before. He reports having strong cravings as soon as he wakes up in the morning which made it hard for him to stay sober. Patient states that his drinking has affected his health, happiness, friendships. He states "I am so unhappy with my life right now, the fact that I am sitting here again after telling myself that it will never happen again makes me so frustrated that I just want to get a drink." Patient states that he will do "anything and everything" right now to stay sober and possibly go to a 30 day treatment or a safe discharge plan to get his life back on track. He states "I need to get my life back and actually live it and save some money and have a family, kids and grow old with them." Patient currently has his family as his support system, he reports that his dad is currently sober at this time and refused to talk about his mother and brother. Orientation to the unit provided. Explained unit's policies and protocols. Patient has not been able to provide urine for UDS. Report given to Dr. Hodge. Orders received. Patient will be started on 5-day Phenobarbital taper to start tomorrow AM. Orders noted and carried out. Addendum: 12/11/17 at 1739 by KIMBERLEE MCLEAN LVN Patient reports that his last drink was today 12/11/2017 at 1000 and drank 1 tall can (12 oz) beer and 250 ml of Vodka. Addendum: 12/11/17 at 1819 by KIMBERLEE MCLEAN LVN OMER 5 upon admission
[2017-12-11 16:00] VITALS: BP 128/66
[2017-12-11] MEDS ORDERED: MAG HYDROX/AL HYDROX/SIMETH 30 ML LIQUID UDC PO PRN (16:00)
[2017-12-11] MEDS ORDERED: diphenhydrAMINE 50 MG CAPSULE PO PRN (16:00)
[2017-12-11] MEDS ORDERED: LORAZEPAM 2 MG/1 ML VIAL IM PRN (16:00)
[2017-12-11] MEDS ORDERED: MAGNESIUM HYDROXIDE 30 ML LIQUID UDC PO PRN (16:00)
[2017-12-11] MEDS ORDERED: LORAZEPAM 1 MG TABLET PO PRN (16:00)
[2017-12-11] MEDS ORDERED: MIRALAX 17 GM POWD.PACK PO PRN (16:00)
[2017-12-11] MEDS ORDERED: THIAMINE HCL 200 MG/2 ML VIAL IM ONE (16:00)
[2017-12-11] MEDS ORDERED: ONDANSETRON HCL 4 MG TABLET PO PRN (16:00)
[2017-12-11] MEDS ORDERED: IBUPROFEN 600 MG TABLET PO PRN (16:00)
[2017-12-11] MEDS ORDERED: 6 DAY PHENOBARBITAL TAPER -SERENITY PROTOCOL PO PRN (16:15)
--- NOTE | 2017-12-11 16:50 | NUR ---
CIWA Assessment: CIWA 17, patient presented with gross tremors, anxiety, agitation, nausea, restlessness, diaphoresis, difficulty concentrating, anhedonia, and light sensitivity. Will medicate patient as ordered.
[2017-12-11] MEDS: LORAZEPAM 1 MG TABLET PO PRN ×2 (17:20→23:58)
--- NOTE | 2017-12-11 17:20 | NUR ---
Ativan 2mg/Clonidine 0.1mg PO given: CIWA 17, patient presented with restlessness, pacing in the hallway and in and out of his room. He is noted with facial flushing, sweating, gross tremors, nausea, increased anxiety and agitation. Pulse 125. Medicated patient with Ativan 2 mg PO and Clonidine 0.1mg PO given as ordered. Will monitor for effectiveness.
[2017-12-11] MEDS: CLONIDINE HCL 0.1 MG TABLET PO PRN (17:21)
[2017-12-11] MEDS: ONDANSETRON 4 MG/2 ML VIAL IM PRN (17:49)
--- NOTE | 2017-12-11 17:49 | NUR ---
Zofran 4 mg IM given: Patient noted with x 2 episodes of emesis. Medicated patient with Zofran 4 mg IM as ordered. Will monitor for effectiveness.
[2017-12-11 18:16] LABS: BASOPHILS # (AUTO) 0.1 K/uL (0.0-8.0); BASOPHILS % (AUTO) 0.7 % (0.0-2.0); EOSINOPHILS % (AUTO) 0.1 % (0.0-7.0); HEMOGLOBIN 15.9 g/dL (12.5-16.3); LYMPHOCYTES # (AUTO) 2.1 K/uL (20.0-40.0); LYMPHOCYTES % (AUTO) 19.5 % (20.5-51.5); MEAN CORPUSCULAR HEMOGLOBIN 31.3 uug (23.8-33.4); MEAN CORPUSCULAR HGB CONC 32 g/dL (32.5-36.3); MEAN CORPUSCULAR VOLUME 96.7 fL (73.0-96.2); MONOCYTES # (AUTO) 1.5 K/uL (2.0-10.0); MONOCYTES % (AUTO) 13.7 % (0.0-11.0); NEUTROPHILS # (AUTO) 7.1 K/uL (1.8-8.9); PLATELET COUNT (AUTO) 254 K/uL (152-348); RED BLOOD CELL COUNT(AUTO) 5.06 MIL/uL (4.06-5.63); WHITE BLOOD COUNT (AUTO) 10.7 K/uL (3.6-10.2)
--- NOTE | 2017-12-11 18:19 | NUR ---
Re-assessment: Jack Patient verbalizes relief from nausea. No further episodes of vomiting noted. He was able to tolerate 50% of his dinner. Will continue to monitor.
--- NOTE | 2017-12-11 18:20 | NUR ---
Re-assessment: Ativan/Clonidine CIWA 16, patient continues to present with intermittent nausea, less sweating, less tremors and less anxiety noted. He continues to pace in the hallway but states "The meds you gave me worked a little bit, but I'll be OK." Patient was given Zofran at 1749 for x 2 episodes of vomiting with help. No further episodes of vomiting noted. PRN Ativan and Clonidine was effective.
[2017-12-11 18:31] LABS: *AMPHETAMINE, URINE NEGATIVE (NEGATIVE); *BARBITURATE, URINE NEGATIVE (NEGATIVE); *CANNABINOID, URINE NEGATIVE (NEGATIVE); *COCCAINE, URINE NEGATIVE (NEGATIVE); *OPIATE, URINE NEGATIVE (NEGATIVE); *PHENCYCLIDINE SCREEN,URINE NEGATIVE (NEGATIVE); BILIRUBIN,TOTAL 0.4 mg/dL (0.2-1.0); CREATININE 0.9 mg/dL (0.6-1.3); MAGNESIUM 2.1 mg/dL (1.8-2.4); POTASSIUM 3.5 mmol/L (3.5-5.1); TOTAL PROTEIN, SERUM 7.7 g/dL (6.4-8.2)
--- NOTE | 2017-12-11 19:03 | NUR ---
End of Shift Notes: Patient admitted today. 5-day Phenobarbital taper to be started tomorrow AM. No adverse reactions noted. VS monitored closely. Initial CIWA 5 upon admission the increased to 17 due to gross tremors, nausea, vomiting, facial flushing, anxiety, agitation, restlessness, difficulty concentrating, and anhedonia. Medicated patient with Ativan 2 mg PO and Clonidine 0.1mg PO at 1721 with help, then at 1749, patient had x 2 episodes of vomiting which required patient to be medicated with Zofran 4 mg IM as ordered with help. Last CIWA 16. Patient was unable to participate in group and activities due to his withdrawal symptoms. All needs met and attended. Will continue to monitor closely.
--- NOTE | 2017-12-11 19:30 | NUR ---
Start of shift note Patient is a 27 year old male newly admitted for Alcohol withdrawal. Patient was placed on 5 day Phenobarbital taper, to start tomorrow. Patient was given PRN Ativan, Clonidine and Zofran IM. Last CIWA 16. Patient in the room, resting. Patient states I want to sleep more just come back later. No c/o at this time. Safety measures in place. Call light in reach. Will continue to monitor.
[2017-12-11 20:00] VITALS: BP 112/54
--- NOTE | 2017-12-11 20:00 | NUR ---
COWS and CIWA deferred Patient in bed with eyes closed. Respiration even and unlabored. Will continue to monitor Addendum: 12/12/17 at 0141 by VI BURGER LVN error : Patient is on CIWA assessment
--- NOTE | 2017-12-11 20:00 | NUR ---
CIWA deferred Patient in bed with eyes closed. Respiration even and unlabored. Will continue to monitor
--- NOTE | 2017-12-11 23:10 | NUR ---
CIWA assessment Patient awake, presents with anxiety, restlessness, flushed face and sweating. CIWA 10. Patient states he wants to smoke and will go back to sleep.
[2017-12-11] MEDS: ONDANSETRON ODT 4 MG TAB.RAPDIS SL PRN (23:58)
--- NOTE | 2017-12-11 23:58 | NUR ---
PRN Ativan, Zofran SL and Trazadone Patient presents with anxiety, restlessness, flushed face and nausea, sweating and difficulty sleeping. CIWA 17
[2017-12-12] VITALS: BP 133/93
[2017-12-12] MEDS ORDERED: TRAZODONE 50 MG TABLET PO ONE
--- NOTE | 2017-12-12 | NUR ---
CIWA assessment Patient presents with anxiety, restlessness, flushed face, sweating and difficulty sleeping . CIWA 17.
--- NOTE | 2017-12-12 00:28 | NUR ---
PRN Jack PHILLIPS re-assessment Patient states Jack helpful and effective. Will continue to monitor
--- NOTE | 2017-12-12 00:58 | NUR ---
PRN Ativan re-assessment Patient less anxious, restless . Patient states he will try to go back to sleep. Will continue to monitor. Last CIWA 13.
--- NOTE | 2017-12-12 01:30 | NUR ---
PRN Trazadone re-assessment Patient lying in bed with eyes closed. Respiration even and unlabored. Will continue to monitor.
[2017-12-12 04:00] VITALS: BP 107/61
--- NOTE | 2017-12-12 04:00 | NUR ---
CIWA deferred Patient in bed with eyes closed. Respiration even unlabored. Will continue to monitor.
--- NOTE | 2017-12-12 07:01 | NUR ---
End of shift note Patient slept 6 hours. Fluid intake 1,520 ml. voided x 3. No BM. Monitored Patient throughout shift. Patient resting beginning of shift. Patient woke up at 2310 and went down to smoke. CIWA was 10. AT 2358, Patient anxious, restless, nauseated and had difficulty sleeping. CIWA 17. PRN Ativan, Zofran SL and one time Trazadone given. CIWA went down to 13. Safety measures in place. Call light in reach. Will continue to monitor. Last CIWA 13.
--- NOTE | 2017-12-12 07:30 | NUR ---
Start of Shift: Patient is a 27 yr old male who was admitted to [facility] on 12/11/17 for a medically supervised withdrawal from Alcohol, he has been placed on a 5 day Phenobarbital taper and today is day 1. Currently he is in bed asleep, breathing even and unlabored, side rails up x2. PRN medications given on labor economics teacher : Ativan 2MG PO, Trazodone and Zofran , he slept for 6 hours and last CIWA was 13. continue to follow MD plan of care and offer support as needed.
[2017-12-12 08:00] VITALS: BP 109/62
[2017-12-12] MEDS: THIAMINE HCL 100 MG TABLET PO SCH (08:26)
[2017-12-12] MEDS: MULTIVITAMINS,THERAPEUTIC TABLET PO SCH (08:26)
[2017-12-12] MEDS: FOLIC ACID 1 MG TABLET PO SCH (08:26)
[2017-12-12] MEDS: PHENOBARBITAL 60 MG TABLET PO SCH ×3 (08:26→21:13)
--- NOTE | 2017-12-12 08:30 | NUR ---
CIWA 18 Withdrawal symptoms consist of constant nausea and dry heaves, decreased appetite, bilateral hand tremors, diaphoresis and dyspepsia. Scheduled 60 MG PO Phenobarbital given and PRN Zofran 4 MG SL.
--- NOTE | 2017-12-12 08:35 | NUR ---
PRN Zofran Zofran 4 MG SL given for reports of nausea and dry heaves, will continue to monitor
--- NOTE | 2017-12-12 08:35 | NUR ---
PPD placed right forearm
[2017-12-12] MEDS: ONDANSETRON ODT 4 MG TAB.RAPDIS SL PRN (08:36)
[2017-12-12] MEDS ORDERED: TUBERCULIN,PURIF.PROT.DERIV. 5 TU/0.1 ML TEST ID ONE (09:00)
--- NOTE | 2017-12-12 09:35 | NUR ---
PRN Reassess Patient states that nausea and dry heaves have eased off, Zofran 4 MG SL effective
[2017-12-12] MEDS: SERTRALINE HCL 50 MG TABLET PO SCH (09:52)
[2017-12-12 12:00] VITALS: BP 125/89
--- NOTE | 2017-12-12 12:34 | NUR ---
CIWA 20 withdrawal symptoms include nausea, dry heaves, diaphoresis, increased anxiety and irritability, increased heart rate ( 104) 2 MG PO Ativan given
--- NOTE | 2017-12-12 12:35 | NUR ---
PRN Ativan Ativan 2 MG PO given for CIWA 20 withdrawal symptoms include, tachycardia ( 104), diaphoresis, bilateral gross hand tremors, constant nausea, dry heaves, emesis and lethargy. Will continue to monitor and assess
[2017-12-12] MEDS: LORAZEPAM 1 MG TABLET PO PRN (12:36)
[2017-12-12] MEDS: ONDANSETRON 4 MG/2 ML VIAL IM PRN (12:40)
--- NOTE | 2017-12-12 12:40 | NUR ---
PRN Zofran IM Zofran 4 MG IM given in Right deltoid for emesis x 2 and constant nausea will reassess
--- NOTE | 2017-12-12 13:37 | NUR ---
PRN Reassess Ativan 2 MG PO effective, patient states he feels less shaky, CIWA 17 Zofran effective, N/V and dry heaves have eased off
--- NOTE | 2017-12-12 16:00 | NUR ---
CIWA 14 withdrawal symptoms include nausea, diaphoresis, increased anxiety and irritability, increased heart rate ( 113), lethargy and decreased appetite. Scheduled 60 MG Po pheno given
[2017-12-12 17:00] VITALS: BP 143/86
--- NOTE | 2017-12-12 19:13 | NUR ---
End Of Shift: Patient is a 27 yr old male [facility] for a medically supervised withdrawal from Alcohol ( beer/Vodka), he has been placed on a 5 day Phenobarbital taper and this is day 1. Patient has been nauseous most of the day requiring Zofran 4MG SL and Zofran 4 MG IM and PRN Ativan 2 MG PO for increased anxiety and CIWA of 20. His withdrawal symptoms have included nausea , dry heaves, emesis, decreased appetite, tachycardia, Anhedonia and lethargy. He has attended group and is interacting appropriately with his peers. He had a fluid intake of 2400 ML, 3 Voids and 2 BM. His last CIWA was 14 @ 1600. Continue to follow MD plan of care and offer support as needed. Endorsed to weight shifter.
--- NOTE | 2017-12-12 19:30 | NUR ---
START OF SHIFT Pt is a 27 y/o old male admitted for a medically supervised withdrawal from Alcohol ; continues with 5 day Phenobarbital taper and is tolerating well.Per endorsement, Pt has been nauseous most of the day requiring Zofran 4MG SL and Zofran 4 MG IM and PRN Ativan 2 MG PO for increased anxiety . His withdrawal symptoms have included nausea , dry heaves, emesis, decreased appetite, tachycardia, Anhedonia and lethargy. He has attended group and is interacting appropriately with his peers. His last CIWA was 14 @ 1600.Pt received in room, he is A/A/O X 4,stated feeling better that the medications are helping him with withdrawal symptoms.No c/o nausea noted,co c/o pain noted.Medications due shortly. Safety measures in place. Call light within reach. Will continue to monitor.
[2017-12-12 20:00] VITALS: BP 143/80
--- NOTE | 2017-12-12 20:00 | NUR ---
CIWA ASSESSMENT CIWA = 10.Pt is somewhat guarded,anxious,restless,pacing in the hallway,minimizing w/d symptoms,focused on smoking,appears worried but keeps to himself. Encouraged to verbalize needs and concerns,emotional support provided,will continue to monitor.
[2017-12-12] MEDS: TRAZODONE 50 MG TABLET PO PRN (22:08)
--- NOTE | 2017-12-12 22:08 | NUR ---
PRN TRAZODONE 50 MG PO GIVEN FOR C/O INSOMNIA.WILL MONITOR.
--- NOTE | 2017-12-12 23:10 | NUR ---
PRN F/U Pt is calm and resting in bed with eyes closed; breathing is even and non labored,no c/o pain or s/s of distress noted;appears to be asleep; will continue to monitor.
[2017-12-13] VITALS: BP 122/77
--- NOTE | 2017-12-13 | NUR ---
CIWA DEFERRED Pt is calm and resting in bed with eyes closed; breathing is even and non labored,no c/o pain or s/s of distress noted;appears to be asleep;V/S are stable, CIWA deferred due to pt being asleep; will continue to monitor.
--- NOTE | 2017-12-13 04:00 | NUR ---
CIWA DEFERRED Pt is calm and resting in bed with eyes closed; breathing is even and non labored,no c/o pain or s/s of distress noted;appears to be asleep; CIWA deferred due to pt being asleep; v/s refused; will continue to monitor.
--- NOTE | 2017-12-13 06:45 | NUR ---
END OF SHIFT Pt is a 27 y/o old male admitted for a medically supervised withdrawal from Alcohol ; continues with 5 day Phenobarbital taper and is tolerating well.He has attended group and is interacting appropriately with his peers. His last CIWA was 10 @ 1999.Pt is A/O X 4.PRN Trazodone was given for insomnia with good effect.Pt slept 7 hours,fluid intake was 1508 mls,voided x 3, no BM. Safety measures in place. Call light within reach. Will continue to monitor.
--- NOTE | 2017-12-13 07:30 | NUR ---
Start of Shift Notes: Report received from mold shifter nurse. Pt is a 27M, admitted for ETOH withdrawal. Per mold shifter nurse, pts last CIWA was 10 and he slept for 7 hours. Pt continues on his Phenobarbital taper to manage withdrawal symptoms. Upon start of shift, pt was awake watching TV. Pt is AOx4. Despite being observed last night for sleep, pt stated I wasnt really sleeping that much and Nanci just been chilling. When asked about complaints pt stated I dont really have any right now. Pt appears stoic but observed to be fidgety and restless. Will continue to monitor. Bed in lowest position. Side rails up x2. Call light functioning and within reach. All needs attended and met.
[2017-12-13 08:00] VITALS: BP 141/89
--- NOTE | 2017-12-13 08:00 | NUR ---
CIWA CIWA 10, pt exhibits slight tremors, slight diaphoresis, moderate anxiety and agitation.
[2017-12-13 08:30] LABS: BILIRUBIN,DIRECT 0.6 mg/dL (0.0-0.2); BILIRUBIN,TOTAL 2.3 mg/dL (0.2-1.0); CREATININE 0.9 mg/dL (0.6-1.3); POTASSIUM 3.5 mmol/L (3.5-5.1); TOTAL PROTEIN, SERUM 6.9 g/dL (6.4-8.2)
[2017-12-13 08:39] LABS: BASOPHILS # (AUTO) 0.1 K/uL (0.0-8.0); BASOPHILS % (AUTO) 1.1 % (0.0-2.0); EOSINOPHILS # (AUTO) 0.1 K/uL (0.0-0.7); LYMPHOCYTES # (AUTO) 1.8 K/uL (20.0-40.0); LYMPHOCYTES % (AUTO) 27.8 % (20.5-51.5); MEAN CORPUSCULAR HEMOGLOBIN 32.1 uug (23.8-33.4); MEAN CORPUSCULAR HGB CONC 34 g/dL (32.5-36.3); MONOCYTES # (AUTO) 0.9 K/uL (2.0-10.0); MONOCYTES % (AUTO) 12.9 % (0.0-11.0); NEUTROPHILS # (AUTO) 3.8 K/uL (1.8-8.9); NEUTROPHILS % (AUTO) 57.2 % (38.5-71.5); RED BLOOD CELL COUNT(AUTO) 4.47 MIL/uL (4.06-5.63)
[2017-12-13] MEDS: SERTRALINE HCL 50 MG TABLET PO SCH (08:50)
[2017-12-13] MEDS: THIAMINE HCL 100 MG TABLET PO SCH (08:50)
[2017-12-13] MEDS: FOLIC ACID 1 MG TABLET PO SCH (08:50)
[2017-12-13] MEDS: MULTIVITAMINS,THERAPEUTIC TABLET PO SCH (08:50)
[2017-12-13] MEDS: PHENOBARBITAL 60 MG TABLET PO SCH ×4 (08:50→21:11)
[2017-12-13 08:55] LABS: HEMOGLOBIN 14.3 g/dL (12.5-16.3); WHITE BLOOD COUNT (AUTO) 6.6 K/uL (3.6-10.2)
[2017-12-13 08:56] LABS: PLATELET COUNT (AUTO) 165 K/uL (152-348)
[2017-12-13 12:00] VITALS: BP 146/101
--- NOTE | 2017-12-13 12:00 | NUR ---
CIWA CIWA 10, pt noted with some tremors, sweating, moderate anxiety and agitation.
[2017-12-13] MEDS: CLONIDINE HCL 0.1 MG TABLET PO PRN (12:16)
--- NOTE | 2017-12-13 12:16 | NUR ---
Clonidine PRN Pt noted with BP 146/101, HR 105. 0.1 Clonidine PRN given. Pt stated he doesnt feel any symptoms but states that the group activity he was just in might have triggered it. Will continue to monitor.
[2017-12-13 13:18] VITALS: BP 132/76
--- NOTE | 2017-12-13 13:18 | NUR ---
Clonidine Reassessment BP 136/76, HR 96. Clonidine PRN effective.
[2017-12-13 14:06] LABS: HEPATITIS B SURFACE AG Negative (Negative)
[2017-12-13 16:00] VITALS: BP 142/93
--- NOTE | 2017-12-13 16:00 | NUR ---
CIWA CIWA 11, pt exhibits tremors, diaphoresis, moderate anxiety and agitation.
--- NOTE | 2017-12-13 19:30 | NUR ---
START OF SHIFT Pt is a 27 y/o old male admitted for a medically supervised withdrawal from Alcohol ; continues with 5 day Phenobarbital taper and is tolerating well.Per endorsement, He has attended group and has been interacting appropriately with his peers. His last CIWA was 11 @ 1600.PRN Clonidine was given for elevated B/P and was effective.Pt received in room, he is A/A/O X 4,stated that he is feeling anxious and restless at times,off and on,but the medications are helping him with withdrawal symptoms.Medications due shortly. Safety measures in place. Call light within reach. Will continue to monitor.
--- NOTE | 2017-12-13 19:34 | NUR ---
End of Shift Note: Report given to mine shifter nurse. Pt was able to participate in group activity today. Last CIWA was 11 at 1600. Pt had increased BP. Clonidine PRN given as ordered. Bed in lowest position. Side rails up x2. Call light functioning and within reach. All needs attended and met.
[2017-12-13 20:00] VITALS: BP 147/81
[2017-12-13] MEDS: TRAZODONE 50 MG TABLET PO PRN (23:18)
--- NOTE | 2017-12-13 23:19 | NUR ---
PRN TRAZODONE 50 MG PO GIVEN FOR C/O INSOMNIA.WILL MONITOR.
[2017-12-14] VITALS: BP 126/80
--- NOTE | 2017-12-14 00:20 | NUR ---
OMER CHEN Pt is calm and resting in bed with eyes closed; breathing is even and non labored,no c/o pain or s/s of distress noted;appears to be asleep; will continue to monitor. Addendum: 12/14/17 at 0506 by DAPHNIE HUDSON RN PRN TRAZODONE EFFECTIVE.
[2017-12-14 04:00] VITALS: BP 116/71
--- NOTE | 2017-12-14 04:00 | NUR ---
CIWA DEFERRED Pt is calm and resting in bed with eyes closed; breathing is even and non labored,no c/o pain or s/s of distress noted;appears to be asleep; v/s stable; will continue to monitor.
--- NOTE | 2017-12-14 06:48 | NUR ---
END OF SHIFT Pt is a 27 y/o old male admitted for a medically supervised withdrawal from Alcohol ; continues with 5 day Phenobarbital taper and is tolerating well.He has been attending groups and is interacting appropriately with his peers. His last CIWA was 10 @ 1999.Pt is A/O X 4.PRN Trazodone was given for insomnia with good effect.Pt slept 6 hours,fluid intake was 1000 mls,voided x 1, no BM. Safety measures in place. Call light within reach. Will continue to monitor.
[2017-12-14 08:00] VITALS: BP 137/97
[2017-12-14 08:07] LABS: POTASSIUM 4.4 mmol/L (3.5-5.1)
[2017-12-14 08:08] LABS: BILIRUBIN,TOTAL 0.9 mg/dL (0.2-1.0); CREATININE 1.1 mg/dL (0.6-1.3); TOTAL PROTEIN, SERUM 6.8 g/dL (6.4-8.2)
--- NOTE | 2017-12-14 08:10 | NUR ---
START OF SHIFT: Received pt A/O X 4. He presents with blunted affect and apathetic mood. He reports some anxiety,fine tremors and restlessness. Phenobarbital taper in progress to manage s/s of w/d. CIWA 10. He states he is attending groups. Encouraged increased fluids to assist in facilitating detox process. Will continue to monitor and offer safe and supportive environment.
[2017-12-14] MEDS: SERTRALINE HCL 50 MG TABLET PO SCH (08:32)
[2017-12-14] MEDS: THIAMINE HCL 100 MG TABLET PO SCH (08:32)
[2017-12-14] MEDS: FOLIC ACID 1 MG TABLET PO SCH (08:32)
[2017-12-14] MEDS: MULTIVITAMINS,THERAPEUTIC TABLET PO SCH (08:32)
[2017-12-14] MEDS: PHENOBARBITAL 60 MG TABLET PO SCH ×3 (08:32→21:40)
[2017-12-14 12:00] VITALS: BP 136/90
--- NOTE | 2017-12-14 12:02 | NUR ---
CIWA 8 he reports anxiety and restlessness with sweats and fine tremors.
[2017-12-14 16:00] VITALS: BP 153/85
--- NOTE | 2017-12-14 19:18 | NUR ---
END OF SHIFT: Pt continues on Phenobarbital taper to manage s/s of w/d which include anxiety,intermittent sweats and fine tremors. Pt attended groups and interacted with peers. He states the detox meds are effective. Will pass shift report to oncoming night nurse.
--- NOTE | 2017-12-14 19:30 | NUR ---
START OF SHIFT Pt is a 27 y/o male admitted on 12/11/17 for ETOH withdrawal. Pt also admitted to using cocaine and marijuana in the past. Pt is on a 5 day Phenobarbital taper, tolerating well. Upon rounds Pt was found in his room watching TV. Pt presents with anxiety, agitation, flushed and clammy skin, and fine tremors. Pt is also withdrawn and is isolative. No PRN medications were given during the day shift. Last CIWA 8. Scheduled medications due. Safety measures in place. Call light within reach. Will continue to monitor.
[2017-12-14 20:00] VITALS: BP 145/85
--- NOTE | 2017-12-14 20:00 | NUR ---
CIWA 8 Pt presents with anxiety, agitation, flushed and clammy skin, and fine tremors. Pt is also withdrawn and is isolative
[2017-12-14] MEDS: TRAZODONE 50 MG TABLET PO PRN (23:08)
--- NOTE | 2017-12-14 23:08 | NUR ---
PRN TRAZODONE ADMINISTRATION Pt requested Trazodone as a sleeping aid. Medication was administered. Safety measures in place. Call light within reach. Will continue to monitor.
[2017-12-15] VITALS: BP 129/55
--- NOTE | 2017-12-15 | NUR ---
CIWA 6 Pt presents with anxiety, agitation, and fine tremors. Safety measures in place. Call light within reach. Will continue to monitor.
--- NOTE | 2017-12-15 00:08 | NUR ---
PRN TRAZODONE REASSESSMENT Pt found in bed watching TV. Pt stated "I'm very sleepy now. I think Im going to sleep soon." Medication noted effective. Safety measures in place. Call light within reach. Will continue to monitor.
--- NOTE | 2017-12-15 04:00 | NUR ---
CIWA DEFERRED V/S REFUSED Pt was found in bed with eyes closed. Pt refused V/S and CIWA assessment was unable to be carried out per order. Safety measures in place. Call light within reach. Will continue to monitor.
--- NOTE | 2017-12-15 07:05 | NUR ---
START OF SHIFT Pt is a 27 y/o male admitted on 12/11/17 for ETOH withdrawal. Pt also admitted to using cocaine and marijuana in the past. Pt to continue a 5 day Phenobarbital taper, tolerating well. Pt presented with anxiety, agitation, flushed and clammy skin, and fine tremors. Pt is also withdrawn and is isolative. PRN Trazodone was administered. Last CIWA 6. Pt slept 6 hours. Intake 2,500 ml, voided 4, stool 0. Pt's needs have been met. Endorsed to day shift nurse.
[2017-12-15 08:00] VITALS: BP 116/67
--- NOTE | 2017-12-15 08:00 | NUR ---
Start of Shift Notes/CIWA Assessment: Patient is awake, alert and oriented x 4. CIWA 14. He appears flushed, diaphoretic, with gross tremors noted. He complains of fatigue, malaise and anxiety/nervousness. Encouraged maintenance of personal hygiene and space due to poor regards to hygiene. There is garbage around the room, with empty water bottles and dirty linen on the floor. Patient appears disheveled and unkempt. Shower was encouraged. Patient is a 27 year old male admitted for ETOH withdrawal who was placed on a 5-day Phenobarbital taper as ordered. Per night report, patient was given PRN Trazodone for sleep. Slept for 6 hours. Last CIWA 6. Educated patient on his current plan of care for the day and his medication regimen. Encouraged oral fluid intake and encouraged group participation to learn new skills to prevent relapse. Will continue to monitor closely.
[2017-12-15] MEDS: MULTIVITAMINS,THERAPEUTIC TABLET PO SCH (08:43)
[2017-12-15] MEDS: PHENOBARBITAL 60 MG TABLET PO SCH ×2 (08:43→21:53)
[2017-12-15] MEDS: SERTRALINE HCL 50 MG TABLET PO SCH (08:43)
[2017-12-15] MEDS: FOLIC ACID 1 MG TABLET PO SCH (08:44)
[2017-12-15] MEDS: THIAMINE HCL 100 MG TABLET PO SCH (08:44)
[2017-12-15 12:00] VITALS: BP 137/85
--- NOTE | 2017-12-15 12:28 | NUR ---
CIWA Assessment: CIWA 13, patient continues to present with anxiety, agitation, gross tremors, fatigue, restlessness, diaphoresis and difficulty concentrating. Will medicate patient as ordered and offer support.
[2017-12-15 16:00] VITALS: BP 136/97
--- NOTE | 2017-12-15 16:44 | NUR ---
CIWA Assessment: CIWA 12, patient presented with gross tremors, anxiety, agitation, restlessness, and intermittent perspiration. Will continue to monitor and provide support.
--- NOTE | 2017-12-15 19:03 | NUR ---
End of Shift Notes: Patient continues to be on 5-day Phenobarbital taper. Patient is currently on his 5th day. VS monitored closely. No significant abnormalities noted. Withdrawal symptoms were closely monitored. Initial CIWA 14, patient presented with gross tremors, anxiety, agitation, restlessness, intermittent diaphoresis, myalgia, fatigue, and facial flushing. Last CIWA 12. Patient verbalizes that Phenobarbital has been effective in reducing his withdrawal symptoms. Actively participates in group and activities. All needs met and attended. Will continue to monitor closely.
--- NOTE | 2017-12-15 19:16 | NUR ---
Start of shift note Received report from day shift nurse. Pt is a 27 yo male, A+Ox4, presenting to [facility] for medically supervised ETOH withdrawal. Pt was also using Cocaine and Marijuana. Pt noted to be restless, anxious, and agitated. Pt has HX of anxiety, depression, insomnia, seizure, left ventricular hypertrophy, HTN, and delirium which will be monitored during shift. Pt is on 5 day Phenobarbital taper, tolerated well. Respirations even and unlabored. Will continue to monitor.
[2017-12-15 20:12] VITALS: BP 134/93
--- NOTE | 2017-12-15 20:12 | NUR ---
CIWA Assessment CIWA: 10. Pt noted with fine tremors, sweat on brow, anxiety, and agitation. Respirations even and unlabored. Will continue to monitor.
[2017-12-15] MEDS: TRAZODONE 50 MG TABLET PO PRN (22:55)
--- NOTE | 2017-12-15 22:55 | NUR ---
PRN Trazodone Pt c/o inability to sleep and requested for PRN Trazodone. Medication given and tolerated well. Will reassess within 1 HR. Will continue to monitor.
--- NOTE | 2017-12-15 23:50 | NUR ---
PRN Trazodone Reassessment Medication effective. Pt is resting well ion bed. No s/s of ASE noted at this time. Respirations even and unlabored. Will continue to monitor.
--- NOTE | 2017-12-16 00:58 | NUR ---
V/S refused and CIWA assessment deferred for sleep. Respirations even and unlabored. Will continue to monitor.
--- NOTE | 2017-12-16 04:52 | NUR ---
V/S refused and CIWA assessment deferred for sleep. Respirations even and unlabored. Will continue to monitor.
--- NOTE | 2017-12-16 07:00 | NUR ---
End of shift note Pt was continuously noted with restlessness, agitation, and anxiety. Pt remained in room for majority of shift except to go smoke on smoking patio, to get food from kitchen, and to interact with other patients in recreational room. Pt remained compliant and cooperative with all aspects of treatment. Pt was given PRN Trazodone @2255. Pt is on 5 day Phenobarbital taper, tolerated well. Pt slept for a total of 7 HRS. Last CIWA: 10 @2011. Respirations even and unlabored. Will endorse to day shift nurse.
[2017-12-16 08:00] VITALS: BP 142/104
--- NOTE | 2017-12-16 08:00 | NUR ---
Start of Shift Notes/CIWA Assessment: Patient is awake, alert and oriented x 4. Ambulating in the hallway. States "Can I go smoke please?" CIWA 14. He appears flushed, diaphoretic, with gross tremors noted. He complains of fatigue, malaise and anxiety/nervousness. He is asking what are his meds for today. Encouraged maintenance of personal hygiene and space due to poor regards to hygiene. Patient is odorous and room is noted with an odorous smell. Patient appears disheveled and unkempt. Shower was encouraged and encouraged to maintain his personal space. Patient is a 27 year old male admitted for ETOH withdrawal who was placed on a 5-day Phenobarbital taper as ordered. Per night report, patient was given PRN Trazodone for sleep. Slept for 7 hours. Last CIWA 10. Educated patient on his current plan of care for the day and his medication regimen. Encouraged oral fluid intake and encouraged group participation to learn new skills to prevent relapse. Will continue to monitor closely.
[2017-12-16] MEDS ORDERED: PHENOBARBITAL 60 MG TABLET PO SCH (09:00)
[2017-12-16] MEDS: SERTRALINE HCL 50 MG TABLET PO SCH (09:36)
[2017-12-16] MEDS: MULTIVITAMINS,THERAPEUTIC TABLET PO SCH (09:36)
[2017-12-16] MEDS: THIAMINE HCL 100 MG TABLET PO SCH (09:36)
[2017-12-16] MEDS: FOLIC ACID 1 MG TABLET PO SCH (09:36)
[2017-12-16 12:00] VITALS: BP 131/79
--- NOTE | 2017-12-16 12:36 | NUR ---
CIWA Assessment: CIWA 12, patient continues to exhibit s/s of withdrawal m/b anxiety, agitation, intermittent perspiration, sweating and fatigue. Patient was able to participate in morning group. Will continue to monitor.
[2017-12-16 16:00] VITALS: BP 131/80
--- NOTE | 2017-12-16 16:18 | NUR ---
CIWA Assessment: CIWA 11, patient continues to exhibit s/s of withdrawal m/b anxiety, agitation, gross tremors, intermittent perspiration and fatigue. Patient was able to attend afternoon group. Will continue to monitor.
--- NOTE | 2017-12-16 16:31 | NUR ---
Therapist prompted client to attend twice daily group therapy sessions.
--- NOTE | 2017-12-16 19:03 | NUR ---
End of Shift Notes: Patient completed his 5-day Phenobarbital taper today and will be discharging tomorrow. VS monitored closely. No significant abnormalities noted. Withdrawal symptoms were closely monitored. Initial CIWA 14, patient presented with gross tremors, anxiety, agitation, restlessness, intermittent diaphoresis, myalgia, and fatigue. Last CIWA 11. Patient verbalizes that Phenobarbital has been effective in reducing his withdrawal symptoms. Actively participates in group and activities. Appetite good. All needs met and attended. Will continue to monitor closely.
--- NOTE | 2017-12-16 19:15 | NUR ---
Start of shift note Received report from day shift nurse. Pt is a 27 yo male, A+Ox4, presenting to [facility] for medically supervised ETOH withdrawal. Pt was also using Cocaine and Marijuana. Pt noted with restlessness, anxiety, and agitation. Pt has HX of anxiety, depression, insomnia, seizure, left ventricular hypertrophy, delirium, and HTN which will be monitored during shift. Pt has completed 5 day Phenobarbital taper, tolerated well, and is due for discharge tomorrow. Respirations even and unlabored. Will continue to monitor.
[2017-12-16 20:11] VITALS: BP 139/80
--- NOTE | 2017-12-16 20:11 | NUR ---
CIWA Assessment CIWA: 6. Pt noted with fine tremors, sweat on brow, anxiety, and agitation. Respirations even and unlabored. Will continue to monitor.
[2017-12-16] MEDS: TRAZODONE 50 MG TABLET PO PRN (23:06)
--- NOTE | 2017-12-16 23:06 | NUR ---
PRN Trazodone Pt c/o inability to sleep and requested for PRN Trazodone. Medication given and tolerated well. Will reassess within 1 HR. Will continue to monitor.
--- NOTE | 2017-12-17 00:05 | NUR ---
PRN Trazodone Reassessment Medication effective. Pt is resting well in bed. No s/s of ASE noted at this time. Respirations even and unlabored. Will continue to monitor.
--- NOTE | 2017-12-17 00:59 | NUR ---
V/S refused and CIWA assessment deferred for sleep. Respirations even and unlabored. Will continue to monitor.
--- NOTE | 2017-12-17 04:51 | NUR ---
V/S refused and CIWA assessment deferred for sleep. Respirations even and unlabored. Will continue to monitor.
--- NOTE | 2017-12-17 07:00 | NUR ---
End of shift note Pt was continuously noted with restlessness, anxiety, and agitation. Pt remained in room for majority of shift except to go smoke on smoking patio, to get food from kitchen, and to interact with other patients in recreational room. Pt was given PRN Trazodone @2306. Pt has completed 5 day Phenobarbital taper, tolerated well, and is due for discharge today. Pt slept for a total of 6 HRS. Last CIWA: 6 @2010. Respirations even and unlabored. Will endorse to day shift nurse.
[2017-12-17 08:00] VITALS: BP 141/95
--- NOTE | 2017-12-17 08:00 | NUR ---
Start of Shift Notes/CIWA Assessment: Patient is awake, alert and oriented x 4. Denies S/I or H/I. No AV hallucinations noted. CIWA 8. He appears flushed, diaphoretic, with gross tremors noted. He complains of anxiety/nervousness due to the discharge process. Patient is a 27 year old male admitted for ETOH withdrawal who was placed on a 5-day Phenobarbital taper as ordered. Per night report, patient was given PRN Trazodone for sleep. Slept for 6 hours. Last CIWA 6. Educated patient on his medication regimen in the morning and the discharge process. He verbalized good understanding. Support provided. Will continue to monitor closely.
[2017-12-17] MEDS: FOLIC ACID 1 MG TABLET PO SCH (08:25)
[2017-12-17] MEDS: THIAMINE HCL 100 MG TABLET PO SCH (08:25)
[2017-12-17] MEDS: SERTRALINE HCL 50 MG TABLET PO SCH (08:25)
[2017-12-17] MEDS: MULTIVITAMINS,THERAPEUTIC TABLET PO SCH (08:25)
--- NOTE | 2017-12-17 09:25 | NUR ---
Discharged: Patient education provided regarding his discharge instructions. Verbalized good understanding of all teachings. All necessary dc paperwork were placed in patient's duffel bag. All clothing, and valuables were returned to the patient. VS stable. CIWA 8. [employer] cabinet checked. Cassette checked. Picked up by [facility] to be transported to [facility] in stable condition.
== END 2017-12-17 09:25 | disposition other institution (70) | DRG 895 ==
LOC: SRC 14:44
PROVIDERS: ADMIT Family Medicine Addiction Medicine; ATTEND Internal Medicine
PROC: HZ2ZZZZ Detoxification Services for Substance Abuse Treatment (ICD-10-PCS; principal; 2017-12-11)
PROC: HZ41ZZZ Group Counseling for Substance Abuse Treatment, Behavioral (ICD-10-PCS; 2017-12-12)
DX: F10.230 Alcohol dependence with withdrawal, uncomplicated (principal); F12.10 Cannabis abuse, uncomplicated; Y90.7 Blood alcohol level of 200-239 mg/100 ml; Z81.3 Family history of other psychoactive substance abuse and dependence; F17.210 Nicotine dependence, cigarettes, uncomplicated; I11.9 Hypertensive heart disease without heart failure; F41.9 Anxiety disorder, unspecified; D72.829 Elevated white blood cell count, unspecified; Z81.1 Family history of alcohol abuse and dependence; F32.9 Major depressive disorder, single episode, unspecified; I15.9 Secondary hypertension, unspecified
CPT/HCPCS: 36415; 70030-TC; 80307; 83690; 83735; 85025; 86580; 86592; 86705; 86803; 87340; 87806; G0480; J2405; J3411; J8499; Q0162